=== PATIENT | male | born 1950 | race Caucasian/White ===

== ENCOUNTER 2021-02-10 09:49 | Emergency (ER) | payer BC, MEDICARE ==
[2021-02-10] MEDS ORDERED: Sodium Chloride 0.9% 1,000 ML ONE (09:58)
[2021-02-10] MEDS ORDERED: Diphtheria,Pertussis(Acell),Tetanus Vaccine 0.5 ML Syringe IM ONE (10:06)
[2021-02-10] MEDS ORDERED: Sodium Chloride 0.9% 1,000 ML IV ONE (10:19)
[2021-02-10] MEDS ORDERED: Morphine 4 MG/ML VIAL IVPUSH ONE (10:33)
[2021-02-10] MEDS ORDERED: Ondansetron 4 MG/2 ML SDV IVPUSH STA (10:33)
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
[2021-02-10 11:36] VITALS: BP 177/97; PULSE 100
== END 2021-02-10 10:55 ==
LOC: CC.ED 09:49
DX: S30.811A Abrasion of abdominal wall, initial encounter (principal); S00.81XA Abrasion of other part of head, initial encounter; S40.811A Abrasion of right upper arm, initial encounter; S05.92XA Unspecified injury of left eye and orbit, initial encounter; S05.91XA Unspecified injury of right eye and orbit, initial encounter; M25.532 Pain in left wrist; R00.0 Tachycardia, unspecified; I10 Essential (primary) hypertension; Z23 Encounter for immunization; W36.2XXA Explosion and rupture of air tank, initial encounter
CPT/HCPCS: 36415; 71045; 80053; 82150; 85025; 85610; 86850; 86900; 86901; 90471; 90715; 93005; 96374; 96375; 99285-25; J2270; J2405; J7030

== ENCOUNTER 2021-03-10 15:42 | Emergency (ER) | payer BC, MEDICARE ==
[2021-03-10 15:48] VITALS: BP 171/95; PULSE 95
[2021-03-10] MEDS ORDERED: cefTRIAXone 1 GM Vial IM ONE (17:07)
--- NOTE | 2021-03-10 17:15 | EDM.PDOC ---
ED HPI GENERAL MEDICAL PROBLEM - General Chief Complaint: Abdominal Pain Stated Complaint: LLQ pain Time Seen by Provider: 03/10/21 16:15 Source of Information: Reports: Patient History Limitations: Reports: No Limitations - History of Present Illness INITIAL COMMENTS - FREE TEXT/NARRATIVE: Hiram is a 70 yo male who presents to the ED via private vehicle with complaints of LLQ abdominal pain. States the pain was an 8 out of 10 at home but has improved since than. States he had blasting done of kidney stones approximately 2 weeks ago at [facility]. Unfortunately the laser machine had malfunctioned and they ended up placing a stent and rescheduling the procedure for March 24. He states he doesn't feel like he has been running a fever but on arrival temp is 100.6. Patient states presently he is feeling okay. Is concerned of the stent as it has been in for 2 weeks already and is concerned it needs to come out. 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 - Past Surgical History HEENT Surgical History: Reports: Tonsillectomy Male Surgical History: Reports: Ureteral Stent Musculoskeletal Surgical History: Reports: Other (See Below) Other Musculoskeletal Surgeries/Procedures:: left and right knee surgery Social & Family History - Family History Family Medical History: No Pertinent Family History - Tobacco Use Tobacco Use Status *Q: Never Tobacco User - Caffeine Use Caffeine Use: Reports: None - Recreational Drug Use Recreational Drug Use: No ED ROS GENERAL - Review of Systems Review Of Systems: See Below Constitutional: Denies: Fever, Chills, Decreased Appetite HEENT: Reports: No Symptoms Respiratory: Reports: No Symptoms Cardiovascular: Reports: No Symptoms Endocrine: Reports: No Symptoms GI/Abdominal: Reports: Abdominal Pain, Nausea. Denies: Bloody Stool, Constipation, Diarrhea, Vomiting : Denies: Discharge, Dysuria, Flank Pain, Frequency, Urgency Skin: Reports: No Symptoms Neurological: Reports: No Symptoms Psychiatric: Reports: No Symptoms ED EXAM, RENAL/ - Physical Exam Exam: See Below Exam Limited By: No Limitations General Appearance: Alert, WD/WN, No Apparent Distress Ears: Normal External Exam, Hearing Grossly Normal, Normal TMs Nose: Normal Inspection, Normal Mucosa, No Blood Throat/Mouth: Normal Inspection, Normal Voice, No Airway Compromise Head: Atraumatic, Normocephalic Neck: Normal Inspection Respiratory/Chest: No Respiratory Distress, Lungs Clear, Normal Breath Sounds, No Accessory Muscle Use Cardiovascular: Normal Peripheral Pulses, Regular Rate, Rhythm, No Edema, No Murmur GI/Abdominal: Normal Bowel Sounds, Soft, No Organomegaly, No Distention, Tender (RLQ and LLQ - mild). No: Guarding, Rigid, Rebound, Mass Extremities: Normal Inspection, No Pedal Edema Neurological: Alert, Oriented, Normal Cognition, No Motor/Sensory Deficits Psychiatric: Normal Affect, Normal Mood Skin Exam: Warm, Dry, Intact, Normal Color, No Rash Course - Vital Signs Last Recorded V/S: Last Vital Signs Temp 100.6 F 03/10/21 15:47 Pulse 95 03/10/21 15:47 Resp 18 03/10/21 15:47 BP 171/95 H 03/10/21 15:47 Pulse Ox 94 L 03/10/21 15:47 - Orders/Labs/Meds Orders: Active Orders 24 hr Category Date Time Status Abdomen Pelvis wo Cont [CT] Stat Exams 03/10/21 16:06 Taken CULTURE URINE [RM] Stat Lab 03/10/21 15:53 Received Labs: Laboratory Tests 03/10/21 03/10/21 03/10/21 Range/Units 15:53 15:53 15:53 WBC 11.1 H (4.0-11.0) 10^3/uL RBC 4.38 L (4.50-6.00) x10^6/uL Hgb 14.5 (14.0-18.0) g/dL Hct 42.2 (42.0-52.0) % MCV 96.3 (83.0-97.0) fL MCH 33.1 H (27.0-32.0) pg MCHC 34.4 (32.0-36.0) g/dL RDW Coeff of Jerilyn 11.7 (11.0-15.0) % Plt Count 190 (150-400) 10^3/uL Immature Gran % (Auto) 0.2 (0.0-4.9) % Neut % (Auto) 75.2 H (41-71) % Lymph % (Auto) 11.4 L (24-44) % [place] % (Auto) 9.9 (0-10) % Eos % (Auto) 2.9 (0-6) % Baso % (Auto) 0.4 (0-1) % Neut # (Auto) 8.35 H (1.80-8.00) x10^3/uL Lymph # (Auto) 1.27 (0.60-5.00) 10^3/uL [place] # (Auto) 1.10 (0.00-1.50) 10^3/uL Eos # (Auto) 0.32 (0.00-1.50) 10^3/uL Baso # (Auto) 0.04 (0.00-0.50) 10^3/uL Immature Gran # (Auto) 0.02 (0.00-0.49) 10^3/uL Sodium 138 (136-145) mEq/L Potassium 4.7 D (3.5-5.0) mEq/L Chloride 100 (98-106) mEq/L Carbon Dioxide 27 (21-32) mmol/L BUN 20 H (7-18) mg/dL Creatinine 1.7 H D (0.7-1.3) mg/dL Est Cr Clr Drug Dosing 41.75 mL/min Estimated GFR (MDRD) 40 L (>=60) mL/min Glucose 339 H* D (75-99) mg/dL Lactic Acid (0.4-2.0) mmol/L Calcium 9.3 (8.4-10.1) mg/dL Total Bilirubin 0.8 (0.0-1.0) mg/dL AST 19 (15-37) U/L ALT 29 (12-78) U/L Alkaline Phosphatase 104 (46-116) U/L C-Reactive Protein 17.5 H (0.2-0.8) mg/dL Total Protein 7.8 (6.4-8.2) g/dL Albumin 3.3 L (3.4-5.0) g/dL Amylase 19 L (25-115) U/L Lipase 62 L (73-393) U/L Urine Color Yellow (YELLOW) Urine Appearance Clear (CLEAR) Urine pH 7.0 (4.5-8.0) Ur Specific [place] 1.015 (1.003-1.020) Urine Protein Trace H (NEGATIVE) mg/dL Urine Glucose (UA) >=1000 H (NEGATIVE) mg/dL Urine Ketones Negative (NEGATIVE) mg/dL Urine Occult Blood Moderate H (NEGATIVE) Urine Nitrite Negative (NEGATIVE) Urine Bilirubin Negative (NEGATIVE) Urine Urobilinogen 0.2 (0.2-1.0) EU/dL Ur Leukocyte Esterase Small H (NEGATIVE) Urine RBC 20-30 H (0-5) /HPF Urine WBC 20-30 H (0-5) /HPF Urine Bacteria Few H (NOT SEEN) /HPF Urinalysis Comment 03/10/21 Range/Units 15:53 WBC (4.0-11.0) 10^3/uL RBC (4.50-6.00) x10^6/uL Hgb (14.0-18.0) g/dL Hct (42.0-52.0) % MCV (83.0-97.0) fL MCH (27.0-32.0) pg MCHC (32.0-36.0) g/dL RDW Coeff of Jerilyn (11.0-15.0) % Plt Count (150-400) 10^3/uL Immature Gran % (Auto) (0.0-4.9) % Neut % (Auto) (41-71) % Lymph % (Auto) (24-44) % [place] % (Auto) (0-10) % Eos % (Auto) (0-6) % Baso % (Auto) (0-1) % Neut # (Auto) (1.80-8.00) x10^3/uL Lymph # (Auto) (0.60-5.00) 10^3/uL [place] # (Auto) (0.00-1.50) 10^3/uL Eos # (Auto) (0.00-1.50) 10^3/uL Baso # (Auto) (0.00-0.50) 10^3/uL Immature Gran # (Auto) (0.00-0.49) 10^3/uL Sodium (136-145) mEq/L Potassium (3.5-5.0) mEq/L Chloride (98-106) mEq/L Carbon Dioxide (21-32) mmol/L BUN (7-18) mg/dL Creatinine (0.7-1.3) mg/dL Est Cr Clr Drug Dosing mL/min Estimated GFR (MDRD) (>=60) mL/min Glucose (75-99) mg/dL Lactic Acid 1.2 (0.4-2.0) mmol/L Calcium (8.4-10.1) mg/dL Total Bilirubin (0.0-1.0) mg/dL AST (15-37) U/L ALT (12-78) U/L Alkaline Phosphatase (46-116) U/L C-Reactive Protein (0.2-0.8) mg/dL Total Protein (6.4-8.2) g/dL Albumin (3.4-5.0) g/dL Amylase (25-115) U/L Lipase (73-393) U/L Urine Color (YELLOW) Urine Appearance (CLEAR) Urine pH (4.5-8.0) Ur Specific [place] (1.003-1.020) Urine Protein (NEGATIVE) mg/dL Urine Glucose (UA) (NEGATIVE) mg/dL Urine Ketones (NEGATIVE) mg/dL Urine Occult Blood (NEGATIVE) Urine Nitrite (NEGATIVE) Urine Bilirubin (NEGATIVE) Urine Urobilinogen (0.2-1.0) EU/dL Ur Leukocyte Esterase (NEGATIVE) Urine RBC (0-5) /HPF Urine WBC (0-5) /HPF Urine Bacteria (NOT SEEN) /HPF Urinalysis Comment Meds: Medications Discontinued Medications Generic Name Dose Route Start Last Admin Trade Name Freq PRN Reason Stop Dose Admin Ceftriaxone Sodium 1 gm 03/10/21 17:07 03/10/21 17:18 Ceftriaxone 1 Gm Vial IM 03/10/21 17:08 1 gm ONETIME ONE Administration Departure - Departure Time of Disposition: 17:26 Disposition: Home, Self-Care 01 Clinical Impression: Pyelonephritis, Elevated blood sugar level - Discharge Information Instructions: Pyelonephritis, Adult, [id number], Hyperglycemia, [id number] Referrals: Jolynn Marvin PA-C [Primary Care Provider] - Forms: ED Department Discharge Additional Instructions: 1) Ciprofloxacin 500mg twice a day for 10 days, take first pill tonight with food. 2) Monitor fevers, if unable to break fever, advise returning for reevaluation 3) Recommend following up with Jolynn Marvin this week in clinic to discussed diabetes as will likely need medication changes and daily log of blood sugars. 4) Encourage low carb diet, refrain from bread, cookies, donuts, potatoes, ice cream, treats, etc... 5) Increase water intake as well. 6) Will need to follow up with urologist in [place] at upcoming appointment, made need to be sooner, if no improvement Sepsis Event Note (ED) - Focused Exam Vital Signs: Vital Signs Temp Pulse Resp BP Pulse Ox 03/10/21 15:47 100.6 F 95 18 171/95 H 94 L - Problem List & Annotations (1) Pyelonephritis SNOMED Code(s): 64417303 Code(s): N12 - TUBULO-INTERSTITIAL NEPHRITIS, NOT SPCF ACUTE OR CHRONIC Status: Acute Current Visit: Yes (2) Elevated blood sugar level SNOMED Code(s): 98125373 Code(s): R73.9 - HYPERGLYCEMIA, UNSPECIFIED Status: Acute Current Visit: Yes - My Orders Last 24 Hours: My Active Orders 03/10/21 15:53 CULTURE URINE [RM] Stat 03/10/21 16:06 Abdomen Pelvis wo Cont [CT] Stat - Assessment/Plan Last 24 Hours: My Active Orders 03/10/21 15:53 CULTURE URINE [RM] Stat 03/10/21 16:06 Abdomen Pelvis wo Cont [CT] Stat Plan: Consulted with urologist, Dr. Salinas, at [facility] in regards to Hiram's condition. Advised giving the patient 1 gram of Rocephin IM and starting patient on Ciprofloxacin. Discussed consultation with Hiram and his , which they both feel okay with current treatment plan. did go to [facility] to get Ciprofloxacin. Patient given 1 gm of Rocephin IM prior to discharge. See additional instructions.
== END 2021-03-10 17:46 | disposition home or self-care (01) ==
LOC: CC.ED 15:42
DX: N12 Tubulo-interstitial nephritis, not specified as acute or chronic (principal); E11.65 Type 2 diabetes mellitus with hyperglycemia; Z91.013 Allergy to seafood; Z79.84 Long term (current) use of oral hypoglycemic drugs
CPT/HCPCS: 36415; 74176; 80053; 81001; 82150; 83605; 83690; 85025; 86140; 87086; 96372; 99284; J0696